=== PATIENT | male | born 1935 | race Caucasian/White ===

== ENCOUNTER → 2017-08-04 | Outpatient (CLI) | payer OTHER | LOC: FIMAGING 10:10 | PROVIDERS: ATTEND Urology | PROC: CP1Z1ZZ Planar Nuclear Medicine Imaging of Musculoskeletal System, All using Technetium 99m (Tc-99m) (ICD-10-PCS; principal; 2017-08-04) | DX: C61 Malignant neoplasm of prostate (principal); M51.36 Other intervertebral disc degeneration, lumbar region; M50.31 Other cervical disc degeneration, high cervical region; M19.012 Primary osteoarthritis, left shoulder; M19.011 Primary osteoarthritis, right shoulder; M19.032 Primary osteoarthritis, left wrist; M19.031 Primary osteoarthritis, right wrist; M17.0 Bilateral primary osteoarthritis of knee; M19.072 Primary osteoarthritis, left ankle and foot; M19.071 Primary osteoarthritis, right ankle and foot; M18.0 Bilateral primary osteoarthritis of first carpometacarpal joints | CPT/HCPCS: 78306; A9503 ==

== ENCOUNTER 2018-08-03 20:26 | Inpatient (IN) | payer OTHER ==
[2018-08-03] MEDS ORDERED: methylPREDNISolone SOD SUCC 125 MG/2 ML VIAL IVP ONE (21:52)
--- NOTE | 2018-08-03 21:56 | EDPHY ---
H & P Stated Complaint: increasing weakness today, PCP sent to ED, consitipation Time Seen by Provider: 08/03/18 21:25 HPI/ROS: CHIEF COMPLAINT: Generalized weakness HISTORY OF PRESENT ILLNESS: 82-year-old male with metastatic melanoma and metastatic prostate cancer presents with a one-week history of increasing weakness. Gradually increasing weakness, now unable to walk for the past 2 days. 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 Markedly elevated LFTs on outpt labs today, with a bilirubin of 5.1. Bilateral pedal edema, left greater than right. Patient is at his normal baseline mental status and has not been confused. His only complaint is constipation. No recent illness, fever, abdominal pain or cough. REVIEW OF SYSTEMS: complete 10 point ROS reviewed and is negative except for the noted elements in the HPI Source: Patient, Family - Personal History Current Tetanus/Diphtheria Vaccine: Yes Current Tetanus Diphtheria and Acellular Pertussis (TDAP): Yes - Medical/Surgical History Hx Asthma: No Hx Chronic Respiratory Disease: No Hx Diabetes: No Hx Cardiac Disease: No Hx Renal Disease: No Hx Cirrhosis: No Hx Alcoholism: No Hx HIV/AIDS: No Hx Splenectomy or Spleen Trauma: No Other PMH: heart attack, cardiac stents, valve replacement, melanoma, autoimmune hepatitis, prostate CA - Social History Smoking Status: Never smoked - Physical Exam Exam: General Appearance: Alert, pleasant Eyes: no conjunctival pallor or injection ENT, Mouth: Mucous membranes moist Neck: Normal inspection Respiratory: Rales at the bases Cardiovascular: Regular rate and rhythm Gastrointestinal: Abdomen is distended and nontender Rectal: No fecal impaction, stools brown Neurological: A&O, generalized weakness, especially in the bilateral lower extremities, unable to raise either leg up against gravity Skin: Warm and dry Extremities: Bilateral pedal edema, left greater than right Psychiatric: Mood and affect normal Constitutional: Initial Vital Signs Temperature (C) 36.6 C 08/03/18 20:38 Heart Rate 89 08/03/18 20:38 Respiratory Rate 18 08/03/18 20:38 Blood Pressure 168/96 H 08/03/18 20:38 O2 Sat (%) 96 08/03/18 20:38 O2 Delivery Mode Room Air Allergies/Adverse Reactions: No Known Allergies Allergy (Verified 08/04/18 08:37) Home Medications: Medication Instructions Recorded Allopurinol [Allopurinol 300 MG 300 mg PO DAILY 08/03/18 (RX)] Aspirin [Aspirin 81mg (*)] 81 mg PO DAILY 08/03/18 Atorvastatin Calcium [Lipitor 40 80 mg PO HS 08/03/18 mg (*)] Folic Acid [Folic Acid 1 MG (*)] 1 mg PO DAILY 08/03/18 Gabapentin [Neurontin 100 MG (*)] 100 mg PO TID PRN 08/03/18 Metoprolol Succinate Xr [Toprol Xl 25 mg PO BID 08/03/18 25 mg (*)] predniSONE 40 mg PO DAILY 08/03/18 LORazepam [Ativan (*)] 0.5 - 1 mg PO HS PRN 08/04/18 Magnesium Hydroxide [Milk of 2,400 mg PO DAILY 08/04/18 Magnesia] Polyethylene Glycol 3350 [Miralax 17 gm PO DAILY 08/04/18 17 gm (*)] Medical Decision Making - Diagnostics EKG Interpretation: EKG interpreted by me reveals normal sinus rhythm, rate 73, inferior Q-waves consistent with old inferior CA. Interpretation: Abnormal EKG Imaging Results: Imaging Impressions Extremity Venous Study 08/03/18 21:56 Impression: No evidence of deep vein thrombosis in the left lower extremity. The study was performed as an emergency on-call case and a preliminary interpretation conveyed to the Emergency Department. The final interpretation is concordant with the original communication. SOHEILA Abdomen Ultrasound 08/03/18 22:15 Impression: 1. Status post cholecystectomy. No evidence for biliary ductal dilatation. Portal vein is patent. 2. Polycystic right kidney. No evidence for hydronephrosis. 3. Other findings as above with limited evaluation secondary to overlying bowel gas. A preliminary report was provided on 08/04/2018 at 0015 hours. The final interpretation is concordant. SOHEILA. Imaging: Discussed imaging studies w/ call taker Radiologist ED Course/Re-evaluation: Patient presents with generalized weakness, hepatic failure and constipation. Discussion with Dr. Peralta, who reviewed this pt's outpt record. History of autoimmune hepatitis, thought secondary to medication. LFTs were normal on 06/15. Bilirubin 3.4 on 07/13/2018. He is currently on prednisone for autoimmune hepatitis. Requests admission, Solu-Medrol 1 milligram/kilogram IV every 12 hr, abdominal ultrasound and viral hepatitis serology. The patient also has metastatic prostate cancer and is on Lupron. PSA gradually increasing from 8 (11/2017) to 252 (07/24/2018). Concern for BLE weakness secondary to spinal tumor; no back pain/tenderness present. Will obs for now, consider MRI if doesn't improve. LLE sono negative for DVT. Abd sono pending. The hospitalist service was consulted for admission. Differential Diagnosis: includes though not limited to dehydration, worsening metastatic disease, spinal mass, electrolyte abn, infectious etiology. - Data Points Laboratory Results: Laboratory Results 08/03/18 21:15 08/03/18 21:15 Microbiology Results: MICROBIOLOGY 08/03/18 22:10 Nasal, Sinus - Swab Respiratory Panel (PCR) - Final No Organism Detected By Pcr Medications Given: Metoprolol Succinate (Toprol Xl) 25 mg PO BID RUBEN Stop: 01/31/19 09:44 Last Admin: 08/04/18 11:02 Dose: 25 mg Senna/Docusate Sodium (Senokot-S) 1 - 2 tab PO BID RUBEN PRN Reason: Protocol Stop: 01/31/19 08:59 Last Admin: 08/04/18 08:40 Dose: 2 tab Discontinued Medications Bisacodyl (Dulcolax Rectal) 10 mg DE ONCE ONE Stop: 08/04/18 15:15 Last Admin: 08/04/18 15:25 Dose: 10 mg Sodium Chloride (Ns) 500 mls @ 0 mls/hr IV ONCE ONE PRN Reason: Wide Open Stop: 08/03/18 23:25 Last Admin: 08/04/18 00:28 Dose: 500 mls Lactulose (Cephulac) 20 gm PO ONCE ONE Stop: 08/04/18 15:14 Last Admin: 08/04/18 15:25 Dose: 20 gm Methylprednisolone Sodium Succinate (Solu-Medrol) 75 mg IVP EDNOW ONE Stop: 08/03/18 21:53 Last Admin: 08/03/18 22:06 Dose: 75 mg Methylprednisolone Sodium Succinate (Solu-Medrol) 75 mg IVP Q12H RUBEN Stop: 01/30/19 09:59 Last Admin: 08/04/18 08:40 Dose: 75 mg Methylprednisolone Sodium Succinate (Solu-Medrol) 50 mg IVP ONCE ONE Stop: 08/04/18 10:46 Last Admin: 08/04/18 11:02 Dose: 50 mg Departure - Departure Disposition: [facility] Inpatient Acute Clinical Impression: Generalized weakness, Autoimmune hepatitis Condition: Serious
[2018-08-03 21:59] LABS: PLATELET COUNT 62 10^3/uL (150-400)
[2018-08-03 22:25] LABS: INR 0.97 (0.83-1.16); PROTIME(PATIENT) 12.5 SEC (12.0-15.0)
[2018-08-03] MEDS ORDERED: ACETAMINOPHEN 325 MG TAB PO PRN (22:29)
[2018-08-03] MEDS ORDERED: ONDANSETRON DISINTEGRATING 4 MG TAB PO PRN (22:29)
[2018-08-03] MEDS ORDERED: ONDANSETRON 4 MG/2 ML VIAL IVP PRN (22:29)
--- NOTE | 2018-08-03 23:04 | CPEKG ---
Test Reason : OPEN Blood Pressure : / mmHG Vent. Rate : 073 BPM Atrial Rate : 072 BPM P-R Int : 176 ms QRS Dur : 089 ms QT Int : 414 ms P-R-T Axes : 043 -36 087 degrees QTc Int : 457 ms Sinus rhythm Inferior infarct, old Confirmed by Carie Nino ([id number]) on 08/03/2018 11:03:29 PM Referred By: CARIE NINO Confirmed By:Carie Nino
--- NOTE | 2018-08-03 23:14 | PDGENHP ---
History and Physical - Chief Complaint Weakness - History of Present Illness 82 yo M w/ hx of prostate CA, metastatic melanoma, and AI hepatitis presents with weakness. The patient tells me he has had progressive difficulty ambulationg for several days. He usually ambulates with a walker but is now unable to get up from bed. He also tells me he feels constipated. He denies URI symptoms, abdominal pain, numbness, or other discomfort. He tells me he is eating and drinking well. He was sent in to the ED by his oncologist due to this weakness as well as rising LFTs. Review of his labs also demonstrates thrombocytopenia. He is being admitted for observation and further work-up. Case discussed with ED physician Dr. Park; records reviewed and summarized above. History Information - Allergies/Home Medication List Allergies/Adverse Reactions: No Known Allergies Allergy (Unverified 08/03/18 20:37) Home Medications: Allopurinol 08/03/18 [Last Taken Unknown] Aspirin 08/03/18 [Last Taken Unknown] Atorvastatin Calcium 08/03/18 [Last Taken Unknown] FOLIC ACID 08/03/18 [Last Taken Unknown] Gabapentin 08/03/18 [Last Taken Unknown] Metoprolol Succinate 08/03/18 [Last Taken Unknown] Prednisone 08/03/18 [Last Taken Unknown] I have personally reviewed and updated: family history, medical history - Past Medical History cancer (Prostate, melanoma) - Surgical History Reports: cancer surgery (Melanoma excision, lymph node biopsy) - Family History Positive for: cancer - Social History Smoking Status: Never smoked Review of Systems Review of Systems: ROS: 10pt was reviewed & negative except for what was stated in HPI & below Physical Exam Physical Exam: Temp Pulse Resp BP Pulse Ox 36.6 C 75 16 180/98 H 94 08/03/18 20:38 08/03/18 23:06 08/03/18 23:06 08/03/18 23:06 08/03/18 23:06 Constitutional: no apparent distress, not in pain Eyes: PERRL, icteric sclera Ears, Nose, Mouth, Throat: no oral mucosal ulcers, dry mucous membranes Cardiovascular: regular rate and rhythym, no murmur, rub, or gallop Respiratory: no respiratory distress, no rales or rhonchi Gastrointestinal: normoactive bowel sounds, soft, non-tender abdomen Neurologic: AAOx3, sensation intact bilaterally, weakness (Lower extremities), other (Ptosis noted) Psychiatric: interacting appropriately, not anxious Lab Data & Imaging Review 08/03/18 21:15 08/03/18 21:15 WBC 8.68 10^3/uL (3.80-9.50) 08/03/18 21:15 RBC 4.27 10^6/uL (4.40-6.38) L 08/03/18 21:15 Hgb 12.1 g/dL (13.7-17.5) L 08/03/18 21:15 Hct 35.0 % (40.0-51.0) L 08/03/18 21:15 MCV 82.0 fL (81.5-99.8) 08/03/18 21:15 MCH 28.3 pg (27.9-34.1) 08/03/18 21:15 MCHC 34.6 g/dL (32.4-36.7) 08/03/18 21:15 RDW 23.0 % (11.5-15.2) H 08/03/18 21:15 Plt Count 62 10^3/uL (150-400) L 08/03/18 21:15 MPV TNP 08/03/18 21:15 Neut % (Auto) 79.1 % (39.3-74.2) H 08/03/18 21:15 Lymph % (Auto) 13.6 % (15.0-45.0) L 08/03/18 21:15 [place] % (Auto) 6.9 % (4.5-13.0) 08/03/18 21:15 Eos % (Auto) 0.1 % (0.6-7.6) L 08/03/18 21:15 Baso % (Auto) 0.0 % (0.3-1.7) L 08/03/18 21:15 Nucleat RBC Rel Count 0.0 % (0.0-0.2) 08/03/18 21:15 Absolute Neuts (auto) 6.86 10^3/uL (1.70-6.50) H 08/03/18 21:15 Absolute Lymphs (auto) 1.18 10^3/uL (1.00-3.00) 08/03/18 21:15 Absolute Monos (auto) 0.60 10^3/uL (0.30-0.80) 08/03/18 21:15 Absolute Eos (auto) 0.01 10^3/uL (0.03-0.40) L 08/03/18 21:15 Absolute Basos (auto) 0.00 10^3/uL (0.02-0.10) L 08/03/18 21:15 Absolute Nucleated RBC 0.00 10^3/uL (0-0.01) 08/03/18 21:15 Immature Gran % 0.3 % (0.0-1.1) 08/03/18 21:15 Immature Gran # 0.03 10^3/uL (0.00-0.10) 08/03/18 21:15 Platelet Estimate DECREASED (ADEQ) L 08/03/18 21:15 Hypochromasia 1+ H 08/03/18 21:15 Microcytic Cells 2+ H 08/03/18 21:15 Oval Macrocytes 2+ H 08/03/18 21:15 Elliptocytes 1+ H 08/03/18 21:15 Schistocytes 1+ H 08/03/18 21:15 PT 12.5 SEC (12.0-15.0) 08/03/18 21:18 INR 0.97 (0.83-1.16) 08/03/18 21:18 APTT 34.0 SEC (23.0-38.0) 08/03/18 21:18 Sodium 130 mEq/L (135-145) L 08/03/18 21:15 Potassium 3.6 mEq/L (3.5-5.2) 08/03/18 21:15 Chloride 100 mEq/L (97-110) 08/03/18 21:15 Carbon Dioxide 24 mEq/l (22-31) 08/03/18 21:15 Anion Gap 6 mEq/L (6-14) 08/03/18 21:15 BUN 18 mg/dL (7-23) 08/03/18 21:15 Creatinine 0.5 mg/dL (0.7-1.3) L 08/03/18 21:15 Estimated GFR > 60 08/03/18 21:15 Glucose 153 mg/dL (70-100) H 08/03/18 21:15 Calcium 8.0 mg/dL (8.5-10.4) L 08/03/18 21:15 Magnesium 2.7 mg/dL (1.6-2.3) H 08/03/18 21:18 Total Bilirubin 4.5 mg/dL (0.1-1.4) H 08/03/18 21:18 Conjugated Bilirubin 3.5 mg/dL (0.0-0.5) H 08/03/18 21:18 Unconjugated Bilirubin 1.0 mg/dL (0.0-1.1) 08/03/18 21:18 AST 241 IU/L (17-59) H 08/03/18 21:18 ALT 268 IU/L (21-72) H 08/03/18 21:18 Alkaline Phosphatase 720 IU/L (38-126) H 08/03/18 21:18 Ammonia 10.0 uMOL/L (9.0-30.0) 08/03/18 22:15 Total Protein 5.3 g/dL (6.3-8.2) L 08/03/18 21:18 Albumin 2.7 g/dL (3.5-5.0) L 08/03/18 21:18 Urine Color YESSICA 08/03/18 22:06 Urine Appearance CLEAR 08/03/18 22:06 Urine pH 7.0 (5.0-7.5) 08/03/18 22:06 Ur Specific [place] 1.014 (1.002-1.030) 08/03/18 22:06 Urine Protein 2+ (NEGATIVE) H 08/03/18 22:06 Urine Ketones NEGATIVE (NEGATIVE) 08/03/18 22:06 Urine Blood 3+ (NEGATIVE) H 08/03/18 22:06 Urine Nitrate NEGATIVE (NEGATIVE) 08/03/18 22:06 Urine Bilirubin NEGATIVE (NEGATIVE) 08/03/18 22:06 Urine Urobilinogen 2.0 EU (0.2-1.0) H 08/03/18 22:06 Ur Leukocyte Esterase NEGATIVE (NEGATIVE) 08/03/18 22:06 Urine RBC 1-3 /hpf (0-3) 08/03/18 22:06 Urine WBC 1-3 /hpf (0-3) 08/03/18 22:06 Ur Epithelial Cells NONE SEEN /lpf (NONE-1+) 08/03/18 22:06 Urine Mucus TRACE /lpf (NONE-1+) 08/03/18 22:06 Urine Glucose NEGATIVE (NEGATIVE) 08/03/18 22:06 Assessment & Plan Assessment: 82 yo M w/ hx of prostate CA, metastatic melanoma, and AI hepatitis presents with weakness and abnormal LFTs. Plan: 1. Weakness - Seems generalized but more pronounced in the lower extremities. No red flag symptoms currently to suggest acute cord compression, although progression of malignancy is certainly possible. - Admit for observation - PT/OT evaluations - Will check respiratory PCR - Trial small fluid bolus - Address LFTs as below - May require MRI if not improving with conservative measures 2. Abnormal LFTs - Per report patient has drug-induced AI hepatitis; although I do not have records for further review at this point. Elevated bilirubin, Alk P , and transaminases have been present for about a month. - RUQ U/S w/ dopplers ordered for further evaluation - Methylprednisolone 1 mg/kg q12h requested by oncology, will order - Monitor CMP 3. Thrombocytopenia - Possibly related to portal hypertension. - Monitor CBC, avoid anticoagulants 4. Metastatic melanoma - Per report, last immunotherapy administered in June. - Oncology consulted 5. Hyponatremia - Subacute in nature, sodium has been mildly low since liver issues started per review. - Monitor BMP Diet - Regular Code - Full Ppx - SCDs noting thrombocytopenia Dispo - Admit under observation status
[2018-08-03] MEDS ORDERED: NS 500 ML IV ONE (23:24)
[2018-08-03] MEDS ORDERED: LACTULOSE 20 GM/30 ML UDCUP PO PRN (23:28)
[2018-08-03] MEDS ORDERED: POLYETHYLENE GLYCOL 3350 17 GM PKT PO PRN (23:28)
[2018-08-03] MEDS ORDERED: MAGNESIUM HYDROXIDE 30 ML UDCUP PO PRN (23:28)
[2018-08-03] MEDS ORDERED: BISACODYL 10 MG SUPP PR PRN (23:28)
[2018-08-04] MEDS: methylPREDNISolone SOD SUCC 125 MG/2 ML VIAL IVP SCH ×4 (00:20→21:49)
[2018-08-04 02:18] LABS: HEPATITIS A ANTIBODY IGM (BCH) NEGATIVE (NEGATIVE); HEPATITIS B CORE AB IGM NEGATIVE (NEGATIVE); HEPATITIS B SURFACE ANTIGEN NEGATIVE (NEGATIVE)
[2018-08-04 04:25] LABS: HEPATITIS C ANTIBODY TOTAL NEGATIVE (NEGATIVE)
[2018-08-04 05:25] LABS: PLATELET COUNT 55 10^3/uL (150-400)
[2018-08-04] MEDS: SENNOSIDES/DOCUSATE SODIUM TAB PO SCH ×2 (08:40→21:49)
[2018-08-04] MEDS ORDERED: ENOXAPARIN 40 MG/0.4 ML SYR SC SCH (09:00)
[2018-08-04] MEDS ORDERED: methylPREDNISolone SOD SUCC 125 MG/2 ML VIAL IVP ONE (10:45)
--- NOTE | 2018-08-04 10:53 | PDCONSULT ---
[facility] Note: Hematology/oncology consultation note Outpatient oncologist: Dr. Abner Mcclain Reason for consultation: History of metastatic melanoma metastatic prostate cancer History of present illness: [place] is an 82-year-old male with history of metastatic cutaneous melanoma and history of metastatic prostate cancer who was admitted for hepatotoxicity. With regards to his history of metastatic melanoma, he initially was diagnosed in May 2017 with a melanoma of the right upper back. He did have axillary lymph node involvement eventually was diagnosed with metastatic disease. He was started on nivolumab in September of 2017. He appears to have had a response to therapy. In June of 2018, he had a sudden increase in his total bilirubin from normal to 4.3. He was started on corticosteroids and he had a decreased his bilirubin down to the 2s. He was tapered down on prednisone we does not recall what dose he was taking at home. He then had labs drawn earlier this week his bilirubin had climbed to the 5s. His AST and ALT were both in the 200s. With regards to his prostate cancer, he is currently on androgen deprivation therapy. His PSA has been declining steadily and most recently was in the 200s on July 24 2018. There is previous discussions about starting abiraterone or enzalutamide. Past medical and surgical history: Melanoma status post excision Present cancer History of gout Rosacea Hypertension Social history: He currently lives with his son who is his dental technician instructor. He is a never smoker. Family history: Noncontributory Allergies: No known drug allergies Medications: Reviewed in the EMR Review of systems: 12 point review systems was obtained and was otherwise negative unless stated in HPI Physical examination: Temp Pulse Resp BP Pulse Ox 36.5 C 72 14 183/90 H 96 08/04/18 07:44 08/04/18 07:44 08/04/18 07:44 08/04/18 07:44 08/04/18 07:44 General: Appears stated age in no acute distress, lying comfortably in bed HEENT: Left eyelid is closed, right eye with pupil reactive to light extraocular movements are intact, oropharynx is clear Cardiovascular: Regular rate and rhythm Pulmonary: Clear to auscultation GI: Soft nontender nondistended bowel sounds are present Extremities: No cyanosis clubbing or edema Psych: Appropriate affect Neuro: Moving all extremities WBC 5.51 10^3/uL (3.80-9.50) 08/04/18 04:15 RBC 4.20 10^6/uL (4.40-6.38) L 08/04/18 04:15 Hgb 12.0 g/dL (13.7-17.5) L 08/04/18 04:15 Hct 34.3 % (40.0-51.0) L 08/04/18 04:15 MCV 81.7 fL (81.5-99.8) 08/04/18 04:15 MCH 28.6 pg (27.9-34.1) 08/04/18 04:15 MCHC 35.0 g/dL (32.4-36.7) 08/04/18 04:15 RDW 22.8 % (11.5-15.2) H 08/04/18 04:15 Plt Count 55 10^3/uL (150-400) L 08/04/18 04:15 MPV TNP 08/04/18 04:15 Neut % (Auto) 90.1 % (39.3-74.2) H 08/04/18 04:15 Lymph % (Auto) 8.5 % (15.0-45.0) L 08/04/18 04:15 [place] % (Auto) 0.9 % (4.5-13.0) L 08/04/18 04:15 Eos % (Auto) 0.0 % (0.6-7.6) L 08/04/18 04:15 Baso % (Auto) 0.0 % (0.3-1.7) L 08/04/18 04:15 Nucleat RBC Rel Count 0.0 % (0.0-0.2) 08/04/18 04:15 Absolute Neuts (auto) 4.96 10^3/uL (1.70-6.50) 08/04/18 04:15 Absolute Lymphs (auto) 0.47 10^3/uL (1.00-3.00) L 08/04/18 04:15 Absolute Monos (auto) 0.05 10^3/uL (0.30-0.80) L 08/04/18 04:15 Absolute Eos (auto) 0.00 10^3/uL (0.03-0.40) L 08/04/18 04:15 Absolute Basos (auto) 0.00 10^3/uL (0.02-0.10) L 08/04/18 04:15 Absolute Nucleated RBC 0.00 10^3/uL (0-0.01) 08/04/18 04:15 Immature Gran % 0.5 % (0.0-1.1) 08/04/18 04:15 Immature Gran # 0.03 10^3/uL (0.00-0.10) 08/04/18 04:15 Platelet Estimate DECREASED (ADEQ) L 08/04/18 04:15 Hypochromasia 1+ H 08/03/18 21:15 Microcytic Cells 1+ H 08/04/18 04:15 Oval Macrocytes 2+ H 08/03/18 21:15 Elliptocytes 1+ H 08/03/18 21:15 Schistocytes 1+ H 08/04/18 04:15 PT 12.5 SEC (12.0-15.0) 08/03/18 21:18 INR 0.97 (0.83-1.16) 08/03/18 21:18 APTT 34.0 SEC (23.0-38.0) 08/03/18 21:18 Sodium 131 mEq/L (135-145) L 08/04/18 04:15 Potassium 3.9 mEq/L (3.5-5.2) 08/04/18 04:15 Chloride 107 mEq/L (97-110) 08/04/18 04:15 Carbon Dioxide 21 mEq/l (22-31) L 08/04/18 04:15 Anion Gap 3 mEq/L (6-14) L 08/04/18 04:15 BUN 16 mg/dL (7-23) 08/04/18 04:15 Creatinine 0.5 mg/dL (0.7-1.3) L 08/04/18 04:15 Estimated GFR > 60 08/04/18 04:15 Glucose 171 mg/dL (70-100) H 08/04/18 04:15 Calcium 7.9 mg/dL (8.5-10.4) L 08/04/18 04:15 Magnesium 2.7 mg/dL (1.6-2.3) H 08/03/18 21:18 Total Bilirubin 4.8 mg/dL (0.1-1.4) H 08/04/18 04:15 Conjugated Bilirubin 3.6 mg/dL (0.0-0.5) H 08/04/18 04:15 Unconjugated Bilirubin 1.2 mg/dL (0.0-1.1) H 08/04/18 04:15 AST 214 IU/L (17-59) H 08/04/18 04:15 ALT 249 IU/L (21-72) H 08/04/18 04:15 Alkaline Phosphatase 666 IU/L (38-126) H 08/04/18 04:15 Ammonia 10.0 uMOL/L (9.0-30.0) 08/03/18 22:15 Total Protein 5.4 g/dL (6.3-8.2) L 08/04/18 04:15 Albumin 2.6 g/dL (3.5-5.0) L 08/04/18 04:15 Procalcitonin 0.35 ng/mL (0.02-0.10) H 08/03/18 22:20 Urine Color YESSICA 08/03/18 22:06 Urine Appearance CLEAR 08/03/18 22:06 Urine pH 7.0 (5.0-7.5) 08/03/18 22:06 Ur Specific [place] 1.014 (1.002-1.030) 08/03/18 22:06 Urine Protein 2+ (NEGATIVE) H 08/03/18 22:06 Urine Ketones NEGATIVE (NEGATIVE) 08/03/18 22:06 Urine Blood 3+ (NEGATIVE) H 08/03/18 22:06 Urine Nitrate NEGATIVE (NEGATIVE) 08/03/18 22:06 Urine Bilirubin NEGATIVE (NEGATIVE) 08/03/18 22:06 Urine Urobilinogen 2.0 EU (0.2-1.0) H 08/03/18 22:06 Ur Leukocyte Esterase NEGATIVE (NEGATIVE) 08/03/18 22:06 Urine RBC 1-3 /hpf (0-3) 08/03/18 22:06 Urine WBC 1-3 /hpf (0-3) 08/03/18 22:06 Ur Epithelial Cells NONE SEEN /lpf (NONE-1+) 08/03/18 22:06 Urine Mucus TRACE /lpf (NONE-1+) 08/03/18 22:06 Urine Glucose NEGATIVE (NEGATIVE) 08/03/18 22:06 Hepatitis A IgM Ab NEGATIVE (NEGATIVE) 08/03/18 21:12 Hep Bs Antigen NEGATIVE (NEGATIVE) 08/03/18 21:12 Hep B Core IgM Ab NEGATIVE (NEGATIVE) 08/03/18 21:12 Hepatitis C Antibody NEGATIVE (NEGATIVE) 08/03/18 21:12 Imaging Impressions Extremity Venous Study 08/03/18 21:56 Impression: No evidence of deep vein thrombosis in the left lower extremity. The study was performed as an emergency on-call case and a preliminary interpretation conveyed to the Emergency Department. The final interpretation is concordant with the original communication. SOHEILA Abdomen Ultrasound 08/03/18 22:15 Impression: 1. Status post cholecystectomy. No evidence for biliary ductal dilatation. Portal vein is patent. 2. Polycystic right kidney. No evidence for hydronephrosis. 3. Other findings as above with limited evaluation secondary to overlying bowel gas. A preliminary report was provided on 08/04/2018 at 0015 hours. The final interpretation is concordant. SOHEILA. Assessment plan: [place] is an 82-year-old male with history of metastatic melanoma and metastatic prostate cancer admitted for hepatotoxicity from immunotherapy 1. Hepatotoxicity: He has grade 3 hepatic dysfunction from nivolumab. His viral hepatitis panel was negative. He had ultrasound of the liver that demonstrated no evidence of metastatic disease or obstruction. 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 I have recommended methylprednisolone 2 milligrams/kilogram of increased the dose today. If his LFTs did not improve over the next 2 days then we could consider using mycophenolate. 2. 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 His last dose of Lupron was at the end of April of 2018. His PSA has climbed dramatically. He also has thrombocytopenia which I think is secondary from marrow involvement from his prostate cancer. I did discuss this with him today. He could potentially receive abiraterone or enzalutamide. 3. Thrombocytopenia: Does not appear to have any microangiopathic hemolytic anemia. I suspect some of this is just secondary to his prostate cancer. Certainly autoimmune thrombocytopenia from immunotherapy is a possibility but I think less likely. All questions were answered. He voices understanding of the plan.
[2018-08-04] MEDS: METOPROLOL SUCCINATE XR 25 MG TAB PO SCH ×2 (11:02→21:48)
--- NOTE | 2018-08-04 13:06 | HOSPPROG ---
Hospitalist Progress Note Assessment/Plan: 82 yo M w/ hx of prostate CA, metastatic melanoma, and AI hepatitis presents with weakness and abnormal LFTs. First encounter, chart reviewed. Discussed the patient's care w Dr Peralta. *weakness -generalized -will monitor closely, may need an MRI if he doesn't improve *Hepatoxicity -viral hepatitis is negative -oncology recommending IV steroids 1 mg/kg q 12 hours -likely from immunotherapy -ultrasound shows no obstruction *Metastatic prostate cancer and Metastatic melanoma -further discussion w oncologist about treatment for prostate ca -PSA has been increasing *thrombocytopenia -will follow *hyponatremia -suspect from poor intake -will recheck *htn -resumed his Metoprolol *constipation -[place] said this is the cause of his weakness -bowel protocol -PT and OT *plan: PT and OT to see, patient is mainly concerned about being constipated Subjective: [place] said he is feeling fine except constipated. Objective: Vital Signs Temp Pulse Resp BP Pulse Ox 36.6 C 82 19 169/98 H 95 08/04/18 11:38 08/04/18 11:38 08/04/18 11:38 08/04/18 11:38 08/04/18 11:38 Laboratory Results 08/04/18 04:15 08/04/18 04:15 08/03/18 08/04/18 08/05/18 05:59 05:59 05:59 Intake Total 500 Output Total 600 Balance -100 PT 12.5 SEC (12.0-15.0) 08/03/18 21:18 INR 0.97 (0.83-1.16) 08/03/18 21:18 - Physical Exam Constitutional: chronically ill appearing Ears, Nose, Mouth, Throat: hard of hearing Cardiovascular: regular rate and rhythym Respiratory: no respiratory distress Gastrointestinal: normoactive bowel sounds, soft, non-tender abdomen Skin: warm Neurologic: AAOx3 Psychiatric: interacting appropriately ICD10 Worksheet Patient Problems: Problems Problem Status Onset Autoimmune hepatitis Acute Generalized weakness Acute
[2018-08-04] MEDS ORDERED: GABAPENTIN 100 MG CAP PO PRN (13:20)
[2018-08-04] MEDS ORDERED: LORazepam 0.5 MG TAB PO PRN (13:20)
[2018-08-04] MEDS ORDERED: LACTULOSE 20 GM/30 ML UDCUP PO ONE (15:13)
[2018-08-04] MEDS ORDERED: BISACODYL 10 MG SUPP PR ONE (15:14)
--- NOTE | 2018-08-04 15:35 | ASMTCMCOM ---
CM Note CM Note Notes: Pt admitted for weakness, has a history of met melanoma and prostate ca. He lives at home with his son who is his home service technician. PT/OT to DAE kate w/f. DC Plan: TBD Date Signed: 08/04/2018 03:34 PM Electronically Signed By:Yessenia Mello RN
[2018-08-05] MEDS: FOLIC ACID 1 MG TAB PO SCH (09:00)
[2018-08-05] MEDS: METOPROLOL SUCCINATE XR 25 MG TAB PO SCH ×2 (09:00→21:25)
[2018-08-05] MEDS: ALLOPURINOL 300 MG TAB PO SCH (09:00)
[2018-08-05] MEDS: SENNOSIDES/DOCUSATE SODIUM TAB PO SCH ×2 (09:00→21:25)
[2018-08-05] MEDS: POLYETHYLENE GLYCOL 3350 17 GM PKT PO SCH (09:01)
[2018-08-05] MEDS: methylPREDNISolone SOD SUCC 125 MG/2 ML VIAL IVP SCH ×2 (09:01→21:26)
--- NOTE | 2018-08-05 10:08 | PDMN ---
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
--- NOTE | 2018-08-05 12:33 | SOAPPROG ---
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 As long as he is still responding we can convert this over to prednisone probably 1 mg/kg/day with a tapering over about 4 weeks. Further nivolumab will be probably discontinued but that final decision will be up to Dr. Mcclain. If he does not improve on his current dose then we can add tacrolimus at 0.1-0.15 mg/kg/day or mycophenolate. * Metastatic melanoma: This very seems to have responded to treatment with nivolumab. Further management and follow-up will be determined by Dr. Mcclain on discharge after he clears this toxicity. * Metastatic prostate cancer: His PSA has been rising. He did not tolerate apalutamide so the plan was to consider either enzalutamide or abiraterone. I will discuss with Dr. Mcclain and we can arrange for that next week. * Constipation: Seems to resolve. We will need to monitor him closely as severe diarrhea can also be complication of the nivolumab. However the treatment is basically the same. Subjective: He reports he is feeling better. His constipation resolved with an enema. Now he has some slight loose stools but does not feel like it he has diarrhea or a lot of abdominal cramping. He denies any pain. Objective: Vital Signs Temp Pulse Resp BP Pulse Ox 36.5 C 53 L 16 143/62 H 95 08/05/18 11:33 08/05/18 11:33 08/05/18 11:33 08/05/18 11:33 08/05/18 11:33 Laboratory Results 08/05/18 04:35 08/04/18 08/05/18 08/06/18 05:59 05:59 05:59 Output Total 400 325 Balance -400 -325 PT 12.5 SEC (12.0-15.0) 08/03/18 21:18 INR 0.97 (0.83-1.16) 08/03/18 21:18 Physical Exam - Physical Exam General Appearance: no apparent distress EENT: scleral icterus (R), scleral icterus (L) Respiratory: lungs clear Cardiac/Chest: regular rate, rhythm Abdomen: non-tender, soft, No hepatomegaly Skin: jaundice ICD10 Worksheet Patient Problems: Problems Problem Status Onset Autoimmune hepatitis Acute Generalized weakness Acute
--- NOTE | 2018-08-05 14:46 | ASMTCMCOM ---
CM Note CM Note Notes: PT/OT recommending SNF. Pt would like [facility] as it's near family/friends. Referral sent via [employer]. Oncology is following pt. D/C plan: SNF Date Signed: 08/05/2018 02:46 PM Electronically Signed By:NATHANIEL Kelly
--- NOTE | 2018-08-05 15:56 | HOSPPROG ---
Hospitalist Progress Note Assessment/Plan: 82 yo M w/ hx of prostate CA, metastatic melanoma, and AI hepatitis presents with weakness and abnormal LFTs. *weakness -generalized -says he is doing better today -therapies are recommending SNF *Hepatoxicity -viral hepatitis is negative -oncology recommending IV steroids 1 mg/kg q 12 hours -likely from immunotherapy -ultrasound shows no obstruction *Metastatic prostate cancer and Metastatic melanoma -further discussion w oncologist about treatment for prostate ca -PSA has been increasing *thrombocytopenia -will follow *hyponatremia -Na 133 *htn -resumed his Metoprolol *constipation -resolved *plan: will discuss w Dr Long about steroids, etc. Will discuss w [place] about SNF. He lives essentially alone and concerned with his health and all the above he needs more help. Subjective: [place] said he is feeling much improved since he had a bowel movement, appetite is good. Objective: Vital Signs Temp Pulse Resp BP Pulse Ox 36.5 C 52 L 20 163/79 H 97 08/05/18 15:42 08/05/18 15:42 08/05/18 15:42 08/05/18 15:42 08/05/18 15:42 Laboratory Results 08/05/18 04:35 08/04/18 08/05/18 08/06/18 05:59 05:59 05:59 Intake Total 250 Output Total 400 500 Balance -400 -250 PT 12.5 SEC (12.0-15.0) 08/03/18 21:18 INR 0.97 (0.83-1.16) 08/03/18 21:18 - Physical Exam Constitutional: chronically ill appearing Eyes: icteric sclera (right eye), other (left eyelid closed from an injury many years ago) Ears, Nose, Mouth, Throat: hard of hearing Cardiovascular: regular rate and rhythym Respiratory: no respiratory distress Gastrointestinal: normoactive bowel sounds, soft, non-tender abdomen Skin: warm Musculoskeletal: generalized weakness Neurologic: AAOx3 Psychiatric: interacting appropriately ICD10 Worksheet Patient Problems: Problems Problem Status Onset Autoimmune hepatitis Acute Generalized weakness Acute
[2018-08-06] MEDS: ALLOPURINOL 300 MG TAB PO SCH (07:36)
[2018-08-06] MEDS: METOPROLOL SUCCINATE XR 25 MG TAB PO SCH ×2 (07:36→20:43)
[2018-08-06] MEDS: FOLIC ACID 1 MG TAB PO SCH (07:36)
[2018-08-06] MEDS: POLYETHYLENE GLYCOL 3350 17 GM PKT PO SCH (07:37)
[2018-08-06] MEDS: SENNOSIDES/DOCUSATE SODIUM TAB PO SCH ×2 (07:37→23:03)
[2018-08-06] MEDS: methylPREDNISolone SOD SUCC 125 MG/2 ML VIAL IVP SCH ×2 (10:18→23:03)
[2018-08-06] MEDS ORDERED: DIAZEPAM 5 MG TAB PO ONE ×2 (12:22→16:00)
--- NOTE | 2018-08-06 12:27 | HOSPPROG ---
Hospitalist Progress Note Assessment/Plan: 82 yo M w/ hx of prostate CA, metastatic melanoma, and AI hepatitis presents with weakness and abnormal LFTs. *weakness -generalized -reviewed his care w PT, his weakness is severe, has foot drop -will get an MRI to r/o metastasis or any other etiology of his weakness -has been living on his own *Hepatoxicity -viral hepatitis is negative -oncology recommending IV steroids 1 mg/kg q 12 hours -likely from immunotherapy -ultrasound shows no obstruction *Metastatic prostate cancer and Metastatic melanoma -further discussion w oncologist about treatment for prostate ca -PSA has been increasing *thrombocytopenia -will follow *hyponatremia -Na 131 *htn -resumed his Metoprolol *constipation -resolved *plan: will discuss w Dr Long about steroids, etc. Get an MRI today to evaluate for any issues w his spine.Therapies recommending SNF. Subjective: [place] c/o feeling constant constipation. Objective: Vital Signs Temp Pulse Resp BP Pulse Ox 36.4 C 53 L 18 161/76 H 97 08/06/18 11:51 08/06/18 11:51 08/06/18 11:51 08/06/18 11:51 08/06/18 11:51 Laboratory Results 08/06/18 05:03 08/05/18 08/06/18 08/07/18 05:59 05:59 05:59 Intake Total 950 Output Total 400 1200 300 Balance -400 -250 -300 PT 12.5 SEC (12.0-15.0) 08/03/18 21:18 INR 0.97 (0.83-1.16) 08/03/18 21:18 - Physical Exam Constitutional: chronically ill appearing, uncomfortable Eyes: icteric sclera (right eye) Ears, Nose, Mouth, Throat: hearing normal Cardiovascular: regular rate and rhythym Respiratory: no respiratory distress Gastrointestinal: normoactive bowel sounds, soft, non-tender abdomen Skin: warm Musculoskeletal: generalized weakness Neurologic: AAOx3 Psychiatric: interacting appropriately ICD10 Worksheet Patient Problems: Problems Problem Status Onset Autoimmune hepatitis Acute Generalized weakness Acute
--- NOTE | 2018-08-06 13:21 | SOAPPROG ---
SOAP Progress Note Assessment/Plan: Assessment: 1. Metastatic melanoma 2. Metastatic prostate cancer, progressive 3. 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 Objective: exam: elderly, NAD sclerae anicteric Lungs CTAB cV RRR no MGr abd: +BS NT nD Ext: no edema Vital Signs Temp Pulse Resp BP Pulse Ox 36.4 C 53 L 18 161/76 H 97 08/06/18 11:51 08/06/18 11:51 08/06/18 11:51 08/06/18 11:51 08/06/18 11:51 Laboratory Results 08/06/18 05:03 08/05/18 08/06/18 08/07/18 05:59 05:59 05:59 Intake Total 950 Output Total 400 1200 300 Balance -400 -250 -300 PT 12.5 SEC (12.0-15.0) 08/03/18 21:18 INR 0.97 (0.83-1.16) 08/03/18 21:18 ICD10 Worksheet Patient Problems: Problems Problem Status Onset Autoimmune hepatitis Acute Generalized weakness Acute
[2018-08-06] MEDS ORDERED: GADOBUTROL 10 ML VIAL IVP ONE (16:36)
[2018-08-06] MEDS: oxyCODONE IR 5 MG TAB PO PRN (20:43)
[2018-08-07] MEDS: METOPROLOL SUCCINATE XR 25 MG TAB PO SCH ×2 (07:56→21:08)
[2018-08-07] MEDS: ALLOPURINOL 300 MG TAB PO SCH (07:56)
[2018-08-07] MEDS: POLYETHYLENE GLYCOL 3350 17 GM PKT PO SCH (07:56)
[2018-08-07] MEDS: SENNOSIDES/DOCUSATE SODIUM TAB PO SCH ×2 (07:56→21:08)
[2018-08-07] MEDS: FOLIC ACID 1 MG TAB PO SCH (07:56)
[2018-08-07] MEDS ORDERED: SULFAMETHOX/TMP 800/160 MG 1 TAB PO SCH (08:00)
--- NOTE | 2018-08-07 10:08 | HOSPPROG ---
Hospitalist Progress Note Assessment/Plan: # AI hepatitis d/t nivolumab - cont solu-medrol per onc # R iliopsoas inflammation - no pain with hip flexion - possibly d/t hepatitis? would not treat for infection at this point # constipation - stools documented here - check AXR - cont bowel reg # generalized weakness - multifactorial; no spinal cord compression on MRI L- spine will need SNF # metastatic melanoma and prostate cancer - recheck PSA today per family request (had been rising) - Dr Mcclain to decide on ongoing prostate cancer treatment - hold nivolumab # hypoNa - recheck tomorrow # thrombocytopenia - recheck tomorrow Subjective: still very weak; seen with dtr and son Objective: Vital Signs Temp Pulse Resp BP Pulse Ox 36.4 C 53 L 14 166/91 H 96 08/07/18 07:08 08/07/18 07:08 08/07/18 07:08 08/07/18 07:08 08/07/18 07:08 Laboratory Results 08/06/18 05:03 08/06/18 08/07/18 08/08/18 05:59 05:59 05:59 Intake Total 950 500 Output Total 1200 1075 200 Balance -250 -575 -200 PT 12.5 SEC (12.0-15.0) 08/03/18 21:18 INR 0.97 (0.83-1.16) 08/03/18 21:18 chart reviewed MRI reviewed - Physical Exam Constitutional: other (laying in bed) Cardiovascular: regular rate and rhythym, no murmur, rub, or gallop Respiratory: no respiratory distress, no rales or rhonchi, clear to auscultation Gastrointestinal: soft, non-tender abdomen, no palpable masses, No guarding, No rebound, No distension Neurologic: AAOx3, other (decresaed strength L leg; no abd pain with R hip flexion) ICD10 Worksheet Patient Problems: Problems Problem Status Onset Generalized weakness Acute Autoimmune hepatitis Acute
[2018-08-07] MEDS: methylPREDNISolone SOD SUCC 125 MG/2 ML VIAL IVP SCH ×2 (10:47→21:08)
--- NOTE | 2018-08-07 10:47 | SOAPPROG ---
SOAP Progress Note Assessment/Plan: Assessment: 1. Metastatic melanoma 2. Metastatic prostate cancer, progressive 3. 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 Recent MRI reviewed 08/07/18 10:43 Subjective: Feels ok, weak Objective: Vital Signs Temp Pulse Resp BP Pulse Ox 97.5 F 53 L 14 166/91 H 96 08/07/18 07:08 08/07/18 07:08 08/07/18 07:08 08/07/18 07:08 08/07/18 07:08 Laboratory Results 08/06/18 05:03 08/06/18 08/07/18 08/08/18 05:59 05:59 05:59 Intake Total 950 500 Output Total 1200 1075 200 Balance -250 -575 -200 PT 12.5 SEC (12.0-15.0) 08/03/18 21:18 INR 0.97 (0.83-1.16) 08/03/18 21:18 Physical Exam - Physical Exam General Appearance: alert, no apparent distress Respiratory: lungs clear Cardiac/Chest: regular rate, rhythm Abdomen: normal bowel sounds, non-tender ICD10 Worksheet Patient Problems: Problems Problem Status Onset Autoimmune hepatitis Acute Generalized weakness Acute
[2018-08-07] MEDS: MYCOPHENOLATE MOFETIL 250 MG CAP PO SCH ×2 (11:22→21:10)
--- NOTE | 2018-08-07 15:29 | ASMTCMCOM ---
CM Note CM Note Notes: Pt to discharge likely tomorrow to [facility] which has accepted him. Pt is comfortable with this plan and updates have been sent to [facility]. CM to follow. D/C Plan: [facility] Date Signed: 08/07/2018 03:28 PM Electronically Signed By:Dorothy Huber
[2018-08-08 06:42] LABS: PLATELET COUNT 53 10^3/uL (150-400)
[2018-08-08] MEDS: ALLOPURINOL 300 MG TAB PO SCH (07:48)
[2018-08-08] MEDS: SENNOSIDES/DOCUSATE SODIUM TAB PO SCH (07:48)
[2018-08-08] MEDS: FOLIC ACID 1 MG TAB PO SCH (07:48)
[2018-08-08] MEDS: METOPROLOL SUCCINATE XR 25 MG TAB PO SCH (07:48)
[2018-08-08] MEDS: MYCOPHENOLATE MOFETIL 250 MG CAP PO SCH (07:48)
[2018-08-08] MEDS: POLYETHYLENE GLYCOL 3350 17 GM PKT PO SCH (07:49)
[2018-08-08] MEDS: methylPREDNISolone SOD SUCC 125 MG/2 ML VIAL IVP SCH (09:38)
--- NOTE | 2018-08-08 12:25 | SOAPPROG ---
SOAP Progress Note Assessment/Plan: Assessment: 1. Metastatic melanoma 2. Metastatic prostate cancer, progressive 3. 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 Recent MRI reviewed -I think he can go to rehab, will give pred 60 bid, continue cellcept, repeat lfts early next week, results to be sent to [place] 08/07/18 10:43 08/08/18 12:23 Subjective: Feels ok Objective: Vital Signs Temp Pulse Resp BP Pulse Ox 97.7 F 77 20 176/102 H 96 08/08/18 11:11 08/08/18 11:11 08/08/18 11:11 08/08/18 11:11 08/08/18 11:11 Laboratory Results 08/08/18 04:28 08/08/18 04:28 08/07/18 08/08/18 08/09/18 05:59 05:59 05:59 Intake Total 500 Output Total 1075 1575 Balance -575 -1575 PT 12.5 SEC (12.0-15.0) 08/03/18 21:18 INR 0.97 (0.83-1.16) 08/03/18 21:18 ICD10 Worksheet Patient Problems: Problems Problem Status Onset Autoimmune hepatitis Acute Generalized weakness Acute
--- NOTE | 2018-08-08 12:32 | PDIAF ---
- Diagnosis Diagnosis: Autoimmune hepatitis Code Status: Full Code - Medication Management Discharge Medications: electronically signed and located in the Home Medication List. - Orders Services needed: Registered Nurse, Certified [employer], Physical Therapy, Occupational Therapy Isolation Type: None Diet Recommendation: no restrictions on diet - Labs/Radiology CMP Date: 08/13/18 (send to Dr Mcclain) - Follow Up Care Current Providers and Referrals: Abner Mcclain MD [Primary Care Provider] - As per Instructions
--- NOTE | 2018-08-08 13:08 | GDS ---
[f rep st] DISCHARGE SUMMARY ALL DIAGNOSES: 1. 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 2. Right iliopsoas inflammation. 3. Constipation. 4. Generalized weakness. 5. Metastatic melanoma and prostate cancer. 6. Hyponatremia, stable. 7. Thrombocytopenia. HOSPITAL COURSE: This is an 82-year-old man admitted with weakness. He has been being treated for a utoimmune hepatitis due to nivolumab. He was initially given some Solu-Medrol with some very slow de crease in his LFTs. Dr. Mcclain added CellCept today. This will need to be followed closely. He will continue on prednisone 60 mg p.o. twice daily for now. He will also continue on CellCept 250 mg p.o . twice daily. We will check LFTs 5 days after discharge and send these to Dr. Mcclain per his request . I have written for this. He also had some right iliopsoas inflammation seen on MRI. I think that this is likely secondary inf lammation from his hepatitis. He does not have any symptoms attributable to this. He has metastatic melanoma, as well as prostate cancer. Nivolumab is being held for now. He will ta doretha Arriola for his prostate cancer. He had some constipation here. He has been having stools. I would recommend continuing his bowel re gimen at the correction facility. DISPOSITION: He is discharged to the correction facility in stable condition. I offered to upd ate his family on this; however, he did not feel that was necessary. BILLING: I spent more than 30 minutes on the day of discharge coordinating care. /[id number]/MODL
--- NOTE | 2018-08-08 13:40 | ASMTLACE ---
LACE Length of stay for Answers: 4-6 days current admission Acuity / Level of Answers: Yes Care: Did the patient have an inpatient admission? Comorbidities - select Answers: Any tumor (including all that apply lymphoma or leukemia) Previous myocardial infarction Other Notes: Hepatitis # of Emergency department Answers: 1-2 visits in the last 6 months Score: 12 Date Signed: 08/08/2018 01:39 PM Electronically Signed By:Dorothy Huber
--- NOTE | 2018-08-08 13:46 | ASMTDCNOTE ---
Case Management Discharge Discharge Order Complete? Answers: Yes Patient to Obtain Answers: Other Notes: [facility] Medications Transportation Arranged Answers: [facility] (Date 08/08/2018 02:30 PM & Time) Faxed Final Orders Answers: Yes Agency/Facility Transfer Answers: Yes Report Printed & Faxed to Receiving Agency Family Notified Answers: Yes Notes: CM called dtr Dorothy Discharge Comments Notes: Spoke with pt in the room and with pt's dtr Dorothy. Pt to discharge to [facility] as discussed. RN given number for RN report. No further CM needs noted at this time. Date Signed: 08/08/2018 01:45 PM Electronically Signed By:Dorothy Huber
[2018-08-08] MEDS: oxyCODONE IR 5 MG TAB PO PRN (13:48)
[2018-08-08 14:05] VITALS: BP 157/95
--- NOTE | 2018-08-08 16:33 | ASDISCHSUM ---
Discharge Information Plan Status:SNF Medically Cleared to Leave:08/08/2018 Discharge Date:08/08/2018 03:08 PM CM D/C Disposition:[facility] ADT D/C Disposition:[facility] Projected Discharge Date:08/06/2018 11:00 AM Transportation at D/C:Wheelchair Van Discharge Delay Reason: Follow-Up Date:08/06/2018 11:00 AM Discharge Slot: Final Diagnosis:Weakness 2/2 Metastatic Melanoma Placement Information Referral Type:*Penitentiary/SNF Referral ID:[id number] Provider Name:[facility] Address 1:[address] Address 2: City:[place] Selection Factors: State:[place] Patient Contact Information Contact Name:ELLEN Relationship:Daughter Address: Work Phone: City: [facility] Phone: [facility]/Zip Code: Email: Financial Information Financial Class:Medicare Primary Plan Desc:MEDICARE INPATIENT Primary Plan Number:[id number] Secondary Plan Desc:[facility] Secondary Plan Number:[id number] Assessment Information LACE LACE Length of stay for Answers: 4-6 days current admission Acuity / Level of Answers: Yes Care: Did the patient have an inpatient admission? Comorbidities - select Answers: Any tumor (including all that apply lymphoma or leukemia) Previous myocardial infarction Other Notes: Hepatitis # of Emergency department Answers: 1-2 visits in the last 6 months Score: 12 Date Signed: 08/08/2018 01:39 PM Electronically Signed By:Dorothy Huber [facility] CM Progress Note CM Note CM Note Notes: Pt admitted for weakness, has a history of met melanoma and prostate ca. 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 PT/OT to [facility] w/f. DC Plan: TBD Date Signed: 08/04/2018 03:34 PM Electronically Signed By:Yessenia Mello RN [facility] CM Progress Note CM Note CM Note Notes: PT/OT recommending SNF. Pt would like [facility] as it's near family/friends. Referral sent via [employer]. Oncology is following pt. D/C plan: SNF Date Signed: 08/05/2018 02:46 PM Electronically Signed By:NATHANIEL Kelly [facility] CM Progress Note CM Note CM Note Notes: Pt to discharge likely tomorrow to [facility] which has accepted him. Pt is comfortable with this plan and updates have been sent to [facility]. CM to follow. D/C Plan: [facility] Date Signed: 08/07/2018 03:28 PM Electronically Signed By:Dorothy Huber Case Management Discharge Plan Note Case Management Discharge Discharge Order Complete? Answers: Yes Patient to Obtain Answers: Other Notes: [facility] Medications Transportation Arranged Answers: Other Notes: [facility] Transport will Pick (Date 08/08/2018 02:30 PM & Time) Faxed Final Orders Answers: Yes Agency/Facility Transfer Answers: Yes Report Printed & Faxed to Receiving Agency Family Notified Answers: Yes Notes: CM called dtr Dorothy Discharge Comments Notes: Spoke with pt in the room and with pt's dtr Dorothy. Pt to discharge to [facility] as discussed. RN given number for RN report. No further CM needs noted at this time. Date Signed: 08/08/2018 01:45 PM Electronically Signed By:Dorothy Huber Intervention Information Intervention Type:*Incorrect Registration Date of Service:08/03/2018 07:09 AM Patient Type:Observation Staff Member:NIKHIL Field, Kandi Hours: Discipline: Severity: Comment: Intervention Type:*COLLIER-Signed Date of Service:08/04/2018 10:45 AM Patient Type:Observation Staff Member:Josephine Key Hours: Discipline: Severity: Comment: Intervention Type:*IM-Signed Date of Service:08/08/2018 11:16 AM Patient Type:Inpatient Staff Member:Josephine Key Hours: Discipline: Severity: Comment:
== END 2018-08-08 15:08 | DRG 442 ==
LOC: INTOOBSV 22:16 → F3E 23:48 → OBSVTOIN 08-04 16:50
PROVIDERS: ADMIT Student in an Organized Health Care Education/Training Program; ATTEND Student in an Organized Health Care Education/Training Program
DX: K75.4 Autoimmune hepatitis (principal); T45.1X5A Adverse effect of antineoplastic and immunosuppressive drugs, initial encounter; C79.82 Secondary malignant neoplasm of genital organs; E87.1 Hypo-osmolality and hyponatremia; K59.00 Constipation, unspecified; D69.6 Thrombocytopenia, unspecified; M60.851 Other myositis, right thigh; I10 Essential (primary) hypertension; Z85.820 Personal history of malignant melanoma of skin
CPT/HCPCS: 96374; 97163-GP; 97166-GO; 97530-GO; 97530-GP; A9585; G0378; G0472; J2930

== ENCOUNTER 2018-08-24 12:17 | Emergency (ER) | payer OTHER ==
[2018-08-24 12:31] VITALS: BP 160/95
--- NOTE | 2018-08-24 12:53 | EDPHY ---
H & P Stated Complaint: foreskin trauma Time Seen by Provider: 08/24/18 12:48 HPI/ROS: HPI: This is an 82-year-old male who presents with Chief Complaint: Foreskin irregularity Location: Foreskin Quality: Swelling Duration: Unknown Signs and Symptoms: no fever, no nausea, no vomiting, no hematemesis, no blood in stool, no abdominal bloating, no diarrhea, no back pain, no urinary symptoms , no testicular/groin pain, no indigestion, no chest pain, no shortness of breath Timing: Unknown Severity: Mild Context: Patient has metastatic melanoma, generalized weakness, lives at [facility] presents with concerns of foreskin irregularity. Patient is not circumcised. Nurse noted today swelling of the foreskin. Patient denies any pain and reports that the area has "been irritated for a few days." Wears a diaper for incontinence. Denies any fever, abdominal pain, nausea, vomiting, penile discharge, testicular pain, penile pain. No history of diabetes mellitus. Modifying Factors: None Comment: ROS: A comprehensive 10 system review of systems is otherwise negative aside from elements mentioned in the history of present illness. MEDICAL/SURGICAL/SOCIAL HISTORY: Medical history: heart attack, cardiac stents, valve replacement, melanoma, autoimmune hepatitis, prostate CA Surgical history: Denies Social history: Never smoked. Disabled. Family history noncontributory. CONSTITUTIONAL: Nontoxic-appearing elderly white male, talkative, awake and alert, no obvious distress HEENT: Atraumatic and normocephalic, PERRL, EOMI. Nares patent; no rhinorrhea; no nasal mucosal edema. Tympanic membranes clear. Oropharynx clear, no exudate and moist pink mucosa. Airway patent. No lymphadenopathy. No meningismus. Cardiovascular: Normal S1/S2, regular rate, regular rhythm, without murmur rub or gallop. PULMONARY/CHEST: Symmetrical and nontender. Clear to auscultation bilaterally. Good air movement. No accessory muscle usage. ABDOMEN: Soft, nondistended, nontender, no rebound, no guarding, no peritoneal signs, no masses or organomegaly. No CVAT. Male : uncircumcised penis, bilateral descended testes, no testicular swelling , no testicular masses, no penile discharge, or skin able to be retracted without any difficulty. Glans and foreskin are mildly swollen and edematous but nontender. No satellite lesions. EXTREMITIES: 2/2 pulses, strength 5/5, no deformities, no clubbing, no cyanosis or edema. NEUROLOGICAL: no focal neuro deficits. GCS 15. SKIN: Warm and dry, no erythema. no rash. Good capillary refill. Source: Patient Exam Limitations: No limitations - Personal History Current Tetanus/Diphtheria Vaccine: Yes Current Tetanus Diphtheria and Acellular Pertussis (TDAP): Yes - Medical/Surgical History Hx Asthma: No Hx Chronic Respiratory Disease: No Hx Diabetes: No Hx Cardiac Disease: Yes Hx Renal Disease: No Hx Cirrhosis: No Hx Alcoholism: No Hx HIV/AIDS: No Hx Splenectomy or Spleen Trauma: No Other PMH: heart attack, cardiac stents, valve replacement, melanoma, autoimmune hepatitis, prostate CA - Social History Smoking Status: Never smoked Constitutional: Initial Vital Signs Temperature (C) 36.4 C 08/24/18 12:29 Heart Rate 83 08/24/18 12:29 Respiratory Rate 16 08/24/18 12:29 Blood Pressure 160/95 H 08/24/18 12:29 O2 Sat (%) 97 08/24/18 12:29 O2 Delivery Mode Room Air Allergies/Adverse Reactions: No Known Allergies Allergy (Verified 08/24/18 12:27) Home Medications: Medication Instructions Recorded Allopurinol [Allopurinol 300 MG 300 mg PO DAILY 08/03/18 (RX)] Atorvastatin Calcium [Lipitor 40 80 mg PO HS 08/03/18 mg (*)] Folic Acid [Folic Acid 1 MG (*)] 1 mg PO DAILY 08/03/18 Gabapentin [Neurontin 100 MG (*)] 100 mg PO TID PRN 08/03/18 Metoprolol Succinate Xr [Toprol Xl 25 mg PO BID 08/03/18 25 mg (*)] LORazepam [Ativan (*)] 0.5 - 1 mg PO HS PRN 08/04/18 Mycophenolate Mofetil [Cellcept] 250 mg PO BID cap 08/08/18 Sulfamethox/Tmp 800/160 mg 1 ea PO MWF tab 08/08/18 [Bactrim DS] Abiraterone Acetate 08/24/18 Losartan Potassium 08/24/18 Mupirocin 2% [Bactroban 2% Oint 1 elva TOP BID 7 Days #30 g 08/24/18 (RX)] hydrALAZINE 08/24/18 Medical Decision Making ED Course/Re-evaluation: Vital signs reviewed and show elevated blood pressure. Patient does not have signs of paraphimosis, priapism, STDs, phimosis Penis was soaked and cleaned thoroughly. Bacitracin applied. Suspect this may be irritant verses bacterial infection versus candidal infection No satellite lesions for clear diagnosis of Ene infection Given a prescription for Bactroban. Proper hygiene instructions and wound care given to the fpc with Urology follow-up If symptoms do not improve in the next 7 days, suspect candidal infection and will need to switch to clotrimazole This patient was seen under the supervision of my secondary supervising physician. I evaluated care for this patient with attending. Differential Diagnosis: Differential diagnosis includes but is not limited to psoriasis lip, lunch in planus, candidal infection, bacterial infection, paraphimosis Departure - Departure Disposition: Home, Routine, Self-Care Clinical Impression: Balanoposthitis Condition: Good Instructions: Marina (ED) Additional Instructions: 1. Soaking of the penis in warm water containing a weak salt solution two to three times per day is advised while inflammation persists. 2. Clean between the foreskin and glans with a Q-tip and irrigate with clean water two to three times per day until the inflammation resolves. 3. Apply Bactroban twice daily x 7 days. 4. Follow-up with Urology in 5-7 days. Referrals: Yuliya Munson [Primary Care Provider] - As per Instructions Spencer Banks MD [Medical Doctor] - As per Instructions Prescriptions: Mupirocin 2% [Bactroban 2% Oint (RX)] 1 elva TOP BID 7 Days #30 g
== END 2018-08-24 13:18 | disposition home or self-care (01) ==
DX: N47.6 Balanoposthitis (principal); Z85.820 Personal history of malignant melanoma of skin